=== PATIENT | female | born 1950 | race Caucasian/White ===

== ENCOUNTER 2018-08-01 02:19 | Inpatient (IN) ==
[2018-08-01 03:45] LABS: BASO# 0.01 X1000 (0.0-0.2); BASO% 0.1 % (0.0-0.8); HEMATOCRIT 39.2 % (37.0-47.0); IMM GRAN# 0.05 X1000 (0.0-0.04); IMM GRAN% 0.5 % (0.0-0.5); LYMPH# 0.92 X1000 (1.2-3.4); LYMPH% 9.3 % (20.5-51.1); MCH 31.6 PG (27-31); MCHC 33.2 g/dL (33-37); MCV 95.1 FL (81-99); MONO# 0.56 X1000 (0.11-0.59); MONO% 5.6 % (1.7-9.3); MPV 10.6 FL (7.4-10.4); NEUT# 8.39 X1000 (1.4-6.5); NEUT% 84.5 % (42.2-75.2); PLT 272 X1000 (130-400); RBC 4.12 XMIL (4.2-5.4); RDW 12.6 % (11.5-14.5); WBC 9.93 X1000 (4.8-10.8)
[2018-08-01 04:10] LABS: AGAP 13; ALB/GLOB RATIO 1.5; ALKALINE PHOSPHATASE 60 U/L (32-104); BUN 13 mg/dL (8-22); CALCIUM 9.4 mg/dL (8.8-10.2); CHLORIDE 98 mmol/L (98-107); COSMO 281; CREATININE 0.7 mg/dL (0.5-0.9); ESTIMATED GFR > 60; GLUCOSE 186 mg/dL (70-104); GOT 58 U/L (10-30); GPT 35 U/L (10-36); POTASSIUM 3.8 mmol/L (3.5-5.1); SODIUM 138 mmol/L (136-145); TCO2 27 mmol/L (25-35); TOTAL BILIRUBIN 0.29 mg/dL (0.20-1.00); TOTAL PROTEIN 6.7 g/dL (6.3-8.3)
[2018-08-01 04:13] LABS: INR 0.86; PROTIME 12.4 Seconds (11.0-16.0)
[2018-08-01] MEDS: NS 1,000 ML IV SCH ×2 (04:39→18:52)
[2018-08-01] MEDS: MORPHINE IV PRN ×5 (04:39→22:13)
[2018-08-01 05:39] LABS: CHOLESTEROL 244 mg/dL (0-200); HDL 87 mg/dL (45-65); LDL 144 mg/dL; TRIGLYCERIDES 66 mg/dL (35-135); VLDL 13 mg/dL
[2018-08-01 05:49] LABS: HEMOGLOBIN A1C 5.6 % (4.8-6.0)
[2018-08-01] MEDS ORDERED: DIPRIVAN 1% ONE (10:04)
[2018-08-01] MEDS ORDERED: FENTANYL ONE (10:04)
--- NOTE | 2018-08-01 10:32 | HISTORY AND PHYSICAL ---
CHIEF COMPLAINT: Abdominal pain, nausea and vomiting. HISTORY OF PRESENT ILLNESS: This is a 68-year-old female who established sent to us from [facility] after she was evaluated tonight for nausea, vomiting and abdominal pain. She has a history of spastic colon, borderline diabetes treated with metformin and hyperlipidemia, however she is unable to take statin. She stated that normally whenever her spastic colon acts up it will hurt for around an hour and then it resumes to normal. Tonight she had nausea and vomiting times a couple of episodes along with intense epigastric abdominal pain, so she went into the emergency room. Laboratory data was all grossly normal. CT scan obtained was read as a volvulus associated with hiatal hernia and partial obstruction. Dr. Ellison was spoken to and the patient will be admitted to [facility] for further evaluation and treatment. PAST MEDICAL HISTORY: Breast cancer. See HPI. PREVIOUS SURGICAL HISTORY: 1. Hysterectomy. 2. Appendectomy. 3. Cholecystectomy. 4. Joint repair. 5. Right mastectomy. SOCIAL HISTORY: She is in the process of being . Apparently, it is a fairly stressful separation. The patient has wished to be confidential in the computer. She denies tobacco, alcohol, illicit drug use or abuse. FAMILY HISTORY: Positive for breast cancer in her mother. ALLERGIES: No known drug allergies. HOME MEDICATIONS: Metformin dose unknown. An order was placed for the nursing to reconcile home medications. REVIEW OF SYSTEMS: A 14 point review of systems conducted with the patient. Pertinent positives listed above in the HPI. All other systems reviewed and found to be negative. PHYSICAL EXAMINATION: VITAL SIGNS: Temperature 97.5 degrees Fahrenheit, pulse 77, respirations 18, blood pressure 117/55. Oxygen saturation 98% on room air. GENERAL: A pleasant 68-year-old, female, lying on the medical floor bed. Answers all questions appropriately. She is alert and oriented x3. HEENT: Head is atraumatic, normocephalic. Eyes: Pupils are equal, round and reactive to light. Extraocular eye movements intact. Sclerae anicteric. Conjunctivae is pink. ENT: Oral mucosa is moist. NECK: Supple. No JVD. No thyromegaly. Trachea is midline. No cervical lymphadenopathy. CARDIOVASCULAR: S1, S2 appreciated. No murmur, gallop or rub. LUNGS: Clear to auscultation bilaterally. No rhonchi, wheeze or rales. Symmetric rise and fall of respirations. ABDOMEN: Soft, nondistended. Tender mainly in the epigastric area. Very mild tenderness. Bowel sounds significantly decreased all four quadrants. No pulsatile mass. No organomegaly. EXTREMITIES: No clubbing, cyanosis or edema. Two-plus pedal pulses bilaterally. GENITOURINARY: No bladder distention. The patient voids. Otherwise deferred. INTEGUMENTARY: Multiple small red petechiae noted all over the patient's extremities. Otherwise, warm, dry and intact. No acute lesions or rash. NEUROLOGIC: Alert and oriented x3. No focal motor deficits. Otherwise nonfocal examination. IMAGING: CT of the abdomen and pelvis at [facility] was read as a volvulus associated with hiatal hernia and partial obstruction. LABORATORY DATA: WBC 9.9, hemoglobin 13.5, hematocrit 38.8, platelet count 275, 000. Sodium 137, potassium 3.8, chloride 98, carbon dioxide 25, BUN 15, creatinine 0.8, glucose 168. Amylase 82. Lipase 23. IMPRESSION AND PLAN: 1. Questionable volvulus with partial bowel obstruction. Dr. Ellison has been consulted. The patient will be held n.p.o. Morphine as needed for pain. Zofran for nausea. If patient continues to vomit, we will speak to Dr. Ellison about possibly trying to advance an NG tube, however that does not seem to be a problem at this point. 2. Diabetes mellitus type 2 on oral antihyperglycemics. We will hold these for now. Check hemoglobin A1c, finger-stick blood sugars q a.c. and at bedtime. Patient is n.p.o. We will not provide sliding-scale coverage at this time. Her blood sugar was mildly elevated. We will continue to monitor. 3. Hyperlipidemia. Patient is allergic to statins. We will check a lipid profile. 4. Nausea and vomiting. Likely associated to #1. See p.r.n. medications. Further recommendations per the patient's clinical course. Dictated by CHERRI Velarde for Mercy Lepe MD cc: MD Marbin Morris CRNP [place]le P. Akinsoto, MD Independent exam and assessment was performed by me with [employer]. Abdomen exam was surprisingly benign without any peritoneal signs. Will treat symptomatically pending surgical review. MTDD
[2018-08-01] MEDS ORDERED: MEFOXIN 2 GM/NS 2 GM/50 ML IVPB ONE (10:45)
[2018-08-01] MEDS ORDERED: EXPAREL 1.3% ONE (11:11)
[2018-08-01] MEDS ORDERED: MEFOXIN 2 GM/NS 2 GM/50 ML IVPB IV ONE (12:00)
[2018-08-01] MEDS: MARCAINE 0.5% PF ONE ×2 (12:21→14:05)
[2018-08-01] MEDS: NAROPIN 0.5% ONE ×3 (12:21→19:59)
[2018-08-01] MEDS: MARCAINE 0.5% ONE ×2 (12:22→14:02)
[2018-08-01 12:38] LABS: URINE SOURCE CATH
[2018-08-01 12:42] LABS: BILIRUBIN URINE NEGATIVE (NEGATIVE); BLOOD URINE NEGATIVE (NEGATIVE); COLOR YELLOW; GLUCOSE URINE NEGATIVE (NEGATIVE); KETONE URINE TRACE mg/dL (NEGATIVE); LEUKOCYTES URINE NEGATIVE (NEGATIVE); NITRITE URINE NEGATIVE (NEGATIVE); PROTEIN URINE NEGATIVE (NEGATIVE); SP GRAVITY URINE 1.022; TURBIDITY URINE CLEAR (CLEAR); UROBILINOGEN URINE NORMAL (NORMAL)
[2018-08-01 12:43] LABS: UR EPITHELIAL CELLS <10 /HPF (<10); URINE BACTERIA NEGATIVE /HPF; URINE RBC <10 /HPF (<10); URINE WBC <10 /HPF (<10)
[2018-08-01] MEDS ORDERED: NEOSTIGMINE ONE ×2 (13:06→13:08)
[2018-08-01] MEDS ORDERED: ROBINUL ONE ×2 (13:06→13:09)
[2018-08-01] MEDS ORDERED: EPHEDRINE ONE (13:09)
[2018-08-01] MEDS ORDERED: XYLOCAINE-MPF 2% ONE (13:09)
[2018-08-01] MEDS ORDERED: DECADRON ONE (13:09)
[2018-08-01] MEDS ORDERED: QUELICIN (DOSE) ONE (13:09)
[2018-08-01] MEDS ORDERED: ZOFRAN ONE (13:09)
[2018-08-01] MEDS ORDERED: NEO-SYNEPHRINE ONE (13:09)
[2018-08-01] MEDS ORDERED: NORCURON ONE (13:09)
[2018-08-01] MEDS: PHENERGAN ONE ×2 (13:53→19:59)
--- NOTE | 2018-08-01 14:01 | OPERATIVE NOTE ---
PROCEDURE DATE: 08/01/2018 PREOPERATIVE DIAGNOSIS: Large type 3 hiatal hernia with gastric volvulus. POSTOPERATIVE DIAGNOSIS: Large type 3 hiatal hernia with gastric volvulus. PROCEDURES: 1. Exploratory laparotomy. 2. Open primary repair of a type 3 hiatal hernia. 3. Open Aamir fundoplication. 4. Open gastrostomy tube placement (18-Angolan). SURGEON: Aquiles Ellison MD TOSSER: Uvaldo Schulte MD. Dr. Schulte assisted with the entirety of the case. His presence was crucial for the completion of the case. ANESTHESIA: General endotracheal. INTRAOPERATIVE FINDINGS: Large hiatal hernia, which we were able to bring back down and reverse torsion. The stomach itself was viable. The crura were very thin. COMPLICATIONS: None at the time of this dictation. ESTIMATED BLOOD LOSS: 100 mL. SPECIMENS REMOVED: None. DRAINS: None other than the 18-Angolan G-tube. BRIEF HISTORY: This is a 68-year-old female presenting with epigastric pain. She had a large hiatal hernia that was causing partial obstruction and pain, and it was felt that she needed repair. The risks, benefits, and alternatives were discussed. All questions were answered. DESCRIPTION OF PROCEDURE: After informed consent was obtained, the patient was brought to the operative theater and transferred to the operating table, and placed in supine position. General endotracheal anesthesia was then performed without complication. A formal time- out was then performed confirming patient and procedure. Anesthesia did do a preoperative TAP block. After the formal time-out, we prepped and draped the abdomen in sterile fashion. After the time-out, we made a standard midline incision to enter into the abdomen. Upon entry into the abdomen, took down and mobilized the left lobe of the liver to expose the hiatus. We dissected and reduced the large hiatal hernia and reduced the contents into the abdomen. We started taking off some of the redundant hernia sac anteriorly and posteriorly. We were able to get around the esophagus and place a nonlatex Loyd catheter around it to retract it. We were able to expose both left and right crura. They were very thin, but amenable to primary closure. We closed with multiple [id number] stitches with Tycron suture. We did this over a 48-Angolan bougie. There was still enough tissue and space for a larger bougie to go through. Once we had done this, we took down the greater curvature of the stomach and the lesser curvature. I felt as though more bulk with a Aamir fundoplication would be beneficial to the patient. We took the fundus, wrapped it posteriorly around the stomach, and then secured it. I did a fundoplication with Tycron sutures in 3 spots. We made sure we were able to shoeshine the stomach, to make sure it was not twisted. We did this right at the GE junction. We then removed the Loyd around the esophagus, removed the 48-Angolan bougie, and then created a gastrostomy tube. We did this to anchor it and pexy it down further because it wanted to retract up into the abdomen still. We made a hole in the abdominal wall 2 fingerbreadths below the costal margin and 2 fingerbreadths lateral. We then placed an 18- Angolan G-tube through it. We then found a spot on the greater curvature, placed a pursestring around it, made a gastrotomy, and placed a tube in there, blew the balloon up with 8 mL of sterile water, then placed further pursestrings around it to close it. We then sutured it with 3-0 silk up against the abdominal wall. We then irrigated out the abdomen until the suction fluid was clear. There was no active bleeding at the completion of the case, in the abdomen. The liver appeared viable. The stomach appeared to be viable. We then closed the fascia with a looped PDS, starting on either side, and closed the skin with sherly. We secured the flange of the G-tube with Prolene stitches to the skin. The patient tolerated the procedure well and was transferred back to the recovery room in stable condition. cc: MD IDA Morris
[2018-08-01] MEDS: DILAUDID ONE ×3 (14:15→19:59)
--- NOTE | 2018-08-01 15:58 | PROGRESS NOTE ---
DATE: 08/01/2018 SUBJECTIVE: Today Ms. Goldsmith refers to be hurting. She just came from surgery. From the review of the operative report, the surgery done was exploratory laparotomy, open primary repair of a type 3 paraesophageal hernia, open Aamir fundoplication, and then an open gastrostomy tube placement was done. This was done by Dr. Ellison with the help of his associated. OBJECTIVE: Vital signs: Blood pressure is 129/71, pulse is 88, respiration is 18, temperature is 97.6. General: Ms. Goldsmith is a 68-year-old female. She is in bed. She is not in any cardiopulmonary distress. HEENT: Mucosa is pink and moist. Anicteric. Acyanotic. Neck: Supple. Chest: Clear to auscultation. No crepitations. No rhonchi. Cardiovascular: Regular rate and rhythm. No murmurs. No rubs. No gallops. Abdomen: Soft. Minimally tender. There is a PEG tube in place. The surgical wound on the anterior abdominal wall is covered with a sterile dressing. Extremities: No pedal edema. : Loyd catheter is in place. PROCESS MAINTENANCE TECHNICIAN: Patient is awake, alert, and oriented. No focal neurological deficit. LABORATORY DATA: WBC is 9.93, hemoglobin is 13.0, platelet count of 272,000. Chemistry is also reviewed, completely unremarkable. ASSESSMENT: 1. Hiatal hernia with volvulus, status post exploratory laparotomy with open primary repair of the paraesophageal hernia and open Aamir fundoplication and open gastrostomy tube placement today. Patient is immediate postop, doing fairly okay. 2. Dyslipidemia, stable. 3. History of diabetes mellitus. The patient was on metformin at home. We will continue using sliding scale. A1c was 5.6. cc: Nelson Craft MD
[2018-08-01] MEDS: PERIDEX MT SCH (20:01)
[2018-08-01] MEDS: SODIUM CHLORIDE 0.9% INJ SCH (20:02)
[2018-08-01] MEDS: PROTONIX IV SCH (20:02)
[2018-08-01] MEDS: HEPARIN SUBQ SCH (20:02)
[2018-08-01] MEDS: ZOFRAN IV PRN (20:22)
[2018-08-02] MEDS: MORPHINE IV PRN ×6 (01:10→21:39)
[2018-08-02] MEDS: HEPARIN SUBQ SCH ×3 (04:25→21:39)
--- NOTE | 2018-08-02 06:13 | GENERAL SURGERY PROGRESS NOTE ---
DATE: 08/02/2018 SUBJECTIVE: Patient seems to be doing okay. She does report some pain at her incision. OBJECTIVE: Vital Signs: The patient is currently afebrile. Her vital signs are stable. General Examination: No acute distress. Cardiovascular: Regular rate and rhythm. Lungs: Grossly clear. Abdomen: Soft. Appropriately tender. ASSESSMENT AND PLAN: A 68-year-old female, currently postoperative day #1 from exploratory laparotomy, open primary repair of a type 3 hiatal hernia, open Aamir fundoplication, and open G- tube placement. Postoperative state. At this time, we will clamp her gastrostomy tube. We will unclamp it for nausea. We will start her on noncarbonated clears. I want to keep her on noncarbonated liquids because of her Aamir fundoplication. We will see how she does. We will try to get her pain controlled but otherwise, continue current treatment. cc: Aquiles Ellison MD
[2018-08-02 06:44] LABS: HEMATOCRIT 35.8 % (37.0-47.0); HEMOGLOBIN 11.8 g/dL (12.0-16.0); LYMPH# 1.71 X1000 (1.2-3.4); MCH 32.2 PG (27-31); MCV 97.8 FL (81-99); MONO# 0.78 X1000 (0.11-0.59); MONO% 11.9 % (1.7-9.3); MPV 11.1 FL (7.4-10.4); NEUT# 4.08 X1000 (1.4-6.5); NEUT% 62.1 % (42.2-75.2); PLT 218 X1000 (130-400); RBC 3.66 XMIL (4.2-5.4); WBC 6.57 X1000 (4.8-10.8)
[2018-08-02 07:09] LABS: AGAP 10; ALB/GLOB RATIO 1.6; ALBUMIN 3.2 g/dL (3.5-5.0); ALKALINE PHOSPHATASE 78 U/L (32-104); BUN 7 mg/dL (8-22); CALCIUM 8.4 mg/dL (8.8-10.2); CHLORIDE 106 mmol/L (98-107); COSMO 280; CREATININE 0.6 mg/dL (0.5-0.9); ESTIMATED GFR > 60; GLUCOSE 115 mg/dL (70-104); GOT 335 U/L (10-30); GPT 315 U/L (10-36); POTASSIUM 3.9 mmol/L (3.5-5.1); SODIUM 141 mmol/L (136-145); TCO2 25 mmol/L (25-35); TOTAL BILIRUBIN 0.78 mg/dL (0.20-1.00); TOTAL PROTEIN 5.2 g/dL (6.3-8.3)
--- NOTE | 2018-08-02 09:29 | Diag Imaging Result Doc PS360 ---
EXAM: US ABDOMEN-COMPLETE HISTORY: transaminitis TECHNIQUE: Abdominal ultrasound COMPARISON: None. FINDINGS: Midline abdominal bandage obscures some detail. No abdominal aortic aneurysm. Normal inferior vena cava. There is likely mild fatty infiltration of the liver. The common bile duct measures 6 mm. The gallbladder has been removed. Normal kidneys. No hydronephrosis. Normal spleen. No ascites. The pancreas is obscured. IMPRESSION: 1.Fatty liver 2.Cholecystectomy Electronically signed by Lloyd Valadez 08/02/2018 9:26 AM
[2018-08-02] MEDS ORDERED: MORPHINE IV PRN (11:30)
[2018-08-02] MEDS: PERIDEX MT SCH ×2 (11:39→21:39)
[2018-08-02] MEDS: NS 1,000 ML IV SCH (15:13)
--- NOTE | 2018-08-02 16:12 | PROGRESS NOTE ---
DATE: 08/02/2018 SUBJECTIVE: Today, Ms. Goldsmith referred to be doing a lot better. She was taking some clear liquid food. She has not had any bowel movement, has not had any gas, but on general note, she feels a lot better. OBJECTIVE: Vital signs: Blood pressure 100/60, pulse 99, respirations 16, temperature 98.4 degrees. General: Ms. Goldsmith is a 68-year-old female. She is in bed. She was not in any cardiopulmonary distress. HEENT: Mucosa is pink and moist. Anicteric. Acyanotic. Neck: Supple. Chest: Good air entry bilaterally. There were no crepitations, no rhonchi. Cardiovascular: Regular rate and rhythm. No murmurs, no rubs, no gallops. Abdomen: Soft, minimally tender around the PEG tube. PEG tube was in place. The surgical wound is still covered with sterile dressing on the anterior abdominal wall. Extremities: No pedal edema. Genitourinary: Loyd catheter is in place. Central nervous system: The patient is awake, alert, and oriented. There is no focal neurological deficit. LABORATORY DATA: WBC 6.57, hemoglobin 11.8, platelet count 218,000. Chemistry is also reviewed. AST has gone up to 335. ALT is 315. DIAGNOSTIC STUDIES: Ultrasound of the abdomen shows fatty liver and cholecystectomy. The common bile duct is 6 mm. MEDICATIONS: The patient's current medications have also been reviewed. ASSESSMENT: 1. Hiatal hernia with volvulus, status post exploratory laparotomy with open primary repair of the paraesophageal hernia, open Aamir fundoplication, and open gastrostomy tube placement. Today is day 1 postop. The patient is doing fairly okay. She has been started on a clear liquid diet. Surgery is on board. 2. Transaminitis. Etiology is unclear. Ultrasound shows fatty liver disease. It is also possible the patient could have had some injury during surgery as well as possible shock liver. Will continue to follow this up and work it up as well. Hepatitis panel has been sent. 3. Dyslipidemia, stable. 4. Diabetes mellitus with presenting A1c of 5.6. The patient is currently on sliding scale. She will go back on her metformin once clinically stable for discharge. PLAN: In general, Ms. Goldsmith is doing fairly okay day 1 postop and she has been started on clear liquids. The only thing abnormal is her AST and ALT have slightly been elevated. Ultrasound of the liver did not show any gross abnormality except for fatty liver disease. Will continue to monitor this. cc: Nelson Craft MD
[2018-08-02] MEDS: PROTONIX IV SCH (21:39)
[2018-08-02] MEDS: SODIUM CHLORIDE 0.9% INJ SCH (21:39)
[2018-08-02] MEDS: ZOFRAN IV PRN (21:40)
[2018-08-03] MEDS: MORPHINE IV PRN ×8 (00:36→23:13)
--- NOTE | 2018-08-03 06:13 | GENERAL SURGERY PROGRESS NOTE ---
DATE: 08/03/2018 SUBJECTIVE: Patient said she is doing okay. She did have some elevation in her LFTs yesterday. Ultrasound was normal. OBJECTIVE: Vital Signs: Patient is currently afebrile. Her vital signs are stable. General: No acute distress. Resting comfortably in bed. Cardiovascular: Regular rate and rhythm. Lungs: Grossly clear. Abdomen: Soft, appropriately tender. LABORATORY: Currently pending this morning. ASSESSMENT AND PLAN: A 68-year-old currently postoperative day #2 from exploratory laparotomy, open primary repair of type 3 hiatal hernia, open Aamir fundoplication, open gastrostomy tube placement. 1. Postoperative state. At this time, we will keep her NG tube clamped. We will advance her to a full liquid diet. I still want it to be on noncarbonated liquids. We will have to essentially keep her on a full liquid diet for several weeks. I do not want advance her beyond this because of her Aamir fundoplication and risk of edema at the wrap. I want the patient to continue to mobilize and keep the G tube clamped. She is on heparin and Protonix. 2. Elevated liver function tests. This is likely secondary to compression of the left lobe of the liver during the procedure. The liver, itself, looked fine. I imagine this will resolve on its own, and will be transient. cc: Aquiles Ellison MD
[2018-08-03] MEDS: HEPARIN SUBQ SCH ×3 (06:28→20:14)
[2018-08-03] MEDS: NS 1,000 ML IV SCH ×2 (06:28→19:03)
[2018-08-03 07:05] LABS: BASO# 0.01 X1000 (0.0-0.2); BASO% 0.2 % (0.0-0.8); EOS# 0.03 X1000 (0.0-0.7); EOS% 0.5 % (0.0-10.0); HEMATOCRIT 33.9 % (37.0-47.0); LYMPH# 1.65 X1000 (1.2-3.4); LYMPH% 26.7 % (20.5-51.1); MCH 32.1 PG (27-31); MCHC 32.4 g/dL (33-37); MCV 98.8 FL (81-99); MONO# 0.62 X1000 (0.11-0.59); MPV 11.5 FL (7.4-10.4); NEUT# 3.88 X1000 (1.4-6.5); NEUT% 62.6 % (42.2-75.2); PLT 155 X1000 (130-400); RBC 3.43 XMIL (4.2-5.4); RDW 12.9 % (11.5-14.5); WBC 6.19 X1000 (4.8-10.8)
[2018-08-03 07:31] LABS: AGAP 14; ALB/GLOB RATIO 1.1; ALBUMIN 2.7 g/dL (3.5-5.0); ALKALINE PHOSPHATASE 124 U/L (32-104); BUN 5 mg/dL (8-22); CALCIUM 8.1 mg/dL (8.8-10.2); CHLORIDE 102 mmol/L (98-107); COSMO 271; CREATININE 0.5 mg/dL (0.5-0.9); ESTIMATED GFR > 60; GLUCOSE 94 mg/dL (70-104); GOT 160 U/L (10-30); GPT 238 U/L (10-36); POTASSIUM 3.5 mmol/L (3.5-5.1); SODIUM 137 mmol/L (136-145); TCO2 21 mmol/L (25-35); TOTAL BILIRUBIN 1.99 mg/dL (0.20-1.00); TOTAL PROTEIN 5.2 g/dL (6.3-8.3)
[2018-08-03 07:57] LABS: INR 0.92; PROTIME 13.1 Seconds (11.0-16.0)
[2018-08-03] MEDS: PERIDEX MT SCH ×2 (09:48→20:14)
[2018-08-03 14:23] LABS: HEPATITIS PROFILE ACUTE SEE COMMENTS
[2018-08-03] MEDS ORDERED: DULCOLAX PR PRN (15:50)
--- NOTE | 2018-08-03 16:12 | PROGRESS NOTE ---
DATE: 08/03/2018 SUBJECTIVE: This morning Ms. Goldsmith refers to be feeling a lot better. She says she has not had any bowel movement yet, but she feels it is coming. She has been advanced to a full liquid diet. OBJECTIVE: Vital signs: Blood pressure is 114/68, pulse 97, respirations 18, temperature is 99.1 degrees. General: Ms. Goldsmith is a 68-year-old female. She was in bed. Not seemingly distress. HEENT: Mucosa is pink and moist. Anicteric. Acyanotic. Neck: Supple. There is no JVD. Chest: Good air entry bilaterally. No crepitations. No rhonchi. Cardiovascular: Regular rate and rhythm. No murmurs. No rubs. No gallops. [place] beat is at 5th intercostal space, midclavicular line. Abdomen: Soft. PEG tube is in place. The anterior abdominal wall still has a sterile dressing over the surgical wound. Extremities: No pedal edema. Distal pulses are present. PHYSICIAN LIAISON: The patient is awake, alert, oriented. No focal neurological deficit. LABORATORY DATA: WBC is 6.19, hemoglobin is 11.0, platelet count of 155,000. Sodium is 137, potassium 3.5, chloride 102, bicarb is 21, AST is down to 160, ALT is down to 238. Hepatitis panel was negative. ASSESSMENT: 1. Large hiatal hernia with volvulus, status post exploratory laparotomy with open primary repair of the hernia and open Aamir fundoplication and open gastrostomy tube placement. Today is day 2 postop. Patient is doing fairly okay. Surgery is on board. She has been started on a full liquid diet. 2. Transaminitis, improving. We think this is probably due to transient injury from surgery. 3. Dyslipidemia, stable. 4. Diabetes mellitus with presenting A1c of 5.6. Continue with sliding scale. Patient will be transitioned back on her metformin at the time of discharge. PLAN: So in general, I think Ms. Goldsmith is doing fairly okay. She has been started on a full liquid diet today. We will get her p.r.n. Dulcolax and follow up with further recommendations from surgery. cc: Nelson Craft MD [facility] HOSPITALGhislaine
[2018-08-03] MEDS: PROTONIX IV SCH (20:14)
[2018-08-03] MEDS: SODIUM CHLORIDE 0.9% INJ SCH (20:14)
[2018-08-04] MEDS: MORPHINE IV PRN (05:32)
[2018-08-04] MEDS: HEPARIN SUBQ SCH (05:33)
[2018-08-04] MEDS ORDERED: NORCO-5 PO PRN (05:42)
[2018-08-04 06:58] LABS: ALB/GLOB RATIO 1.3; ALBUMIN 2.9 g/dL (3.5-5.0); DIRECT BILIRUBIN 0.3 mg/dL (0.00-0.20); TOTAL BILIRUBIN 0.74 mg/dL (0.20-1.00); TOTAL PROTEIN 5.1 g/dL (6.3-8.3)
--- NOTE | 2018-08-04 07:37 | GENERAL SURGERY PROGRESS NOTE ---
DATE: 08/04/2018 SUBJECTIVE: Patient seems to be doing okay, tolerated a full liquid diet, is passing gas, not nauseated, up and mobilizing. OBJECTIVE: Vital Signs: Patient is currently afebrile. Her vital signs are stable. General: No acute distress. Cardiovascular: Regular rate and rhythm. Lungs: Grossly clear. Abdomen: Soft, appropriately tender. Incision is healing well. ASSESSMENT AND PLAN: A 68-year-old female, currently postoperative day #3 from exploratory laparotomy, open primary repair of type 3 hiatal hernia, open Aamir fundoplication, and open gastrostomy tube placement. 1. Postoperative state. At this time, her gastrostomy tube has remained clamped. She is not having nausea. She is tolerating a full liquid diet. I think she is clinically getting close to being discharged. We will transition over to oral pain medicine. If she seems to do okay with oral pain medicine, I think she can be discharged home today. I put a prescription in the chart. I do need to see her back in the office in 1 to 2 weeks. She needs to stay on a noncarbonated full-liquid diet at discharge. 2. Elevated liver function tests. At this time, this seems to be trending down. It is probably related to surgical retraction. cc: Aquiles Ellison MD
[2018-08-04 07:58] VITALS: BP 120/68
[2018-08-04] MEDS: PERIDEX MT SCH (08:43)
--- NOTE | 2018-08-05 16:00 | DISCHARGE SUMMARY ---
ADMISSION DATE: 08/01/2018 DISCHARGE DATE: 08/04/2018 DISPOSITION: Home with [facility]. FOLLOW-UP: 1. Dr. Ellison. 2. Dr. Pineda. CONSULTATION DURING THIS ADMISSION: Surgery was consulted. Patient was seen by Dr. Ellison. INVASIVE PROCEDURES DONE DURING THIS ADMISSION: 1. Exploratory laparotomy. 2. Open primary repair of type 3 hiatal hernia. 3. Open Aamir fundoplication. 4. An open gastrostomy tube placement (18-Chinese. All this was done by Dr. Ellison with his associates. IMAGING STUDIES OF SIGNIFICANCE: Ultrasound of the abdomen showed fatty liver disease, a cholecystectomy. ADMISSION DIAGNOSES: 1. Questionable volvulus and partial bowel obstruction. 2. Diabetes mellitus. 3. Dyslipidemia. DIAGNOSES AT THE TIME OF DISCHARGE: 1. Large hiatal hernia with volvulus, status post exploratory laparotomy with open primary repair of the hernia, and open Aamir fundoplication, and open gastrostomy tube. 2. Transient transaminitis likely due to injury during surgery. 3. Dyslipidemia. 4. Diabetes mellitus with presenting A1c of 5.6. The patient is back onto her oral hypoglycemic agents. 5. Fatty liver disease noted. PRESENTING COMPLAINT: Abdominal pain, nausea and vomiting. HISTORY OF PRESENTING COMPLAINT: Ms. Goldsmith is a 68-year-old female, who was sent from [facility] after she presented over there because of nausea and vomiting. The patient was evaluated. A CT scan of the abdomen from [facility] did show volvulus associated with hiatal hernia and partial obstruction. Dr. Ellison was spoken to from that facility. He accepted the patient as a transfer to [facility] to the Hospitalist Services. The patient was subsequently transferred over here. HOSPITAL COURSE: The patient was initially seen by the hospitalist team. Dr. Ellison was reconsulted. The patient was evaluated by Dr. Ellison and decision was made to take her to OR which was successfully done. Please refer to the details of the OR report. Postoperatively, Ms Goldsmith continued to feel better. Abdominal pain got resolved. No more nausea or vomiting. The gastrostomy tube got clamped for over 48 hours, and she was started on clear liquid and was subsequently advanced to full liquid diet. As of today, Ms. Goldsmith is tolerating well her full liquid diet. She is passing some gas, but has not had any bowel movement. She denies any abdominal puffiness. She denies any nauseation. She has been evaluated by Dr. Ellison this morning, and per his note, it is okay for Ms. Goldsmith to be discharged on oral pain medications. She will follow up with him in the office. This morning Ms. Goldsmith refers to feel a lot better. The was at the bedside at the time of the encounter. VITALS: Blood pressure is 120/68, pulse is 81, respirations 20, temperature 98.5 degrees. The patient was saturating 97% on room air. Physical exam is completely unremarkable, except for the gastrostomy tube on the abdominal wall. There is still some dressing over the surgical sites. Her lab works have also been reviewed. AST is back down to 64 from 335, and her ALT is also down to 149 from 315. The patient is advised to repeat LFTs in about a week. All the discharge instructions were discussed with her and with the , and they both voiced understanding. TIME SPENT FOR DISCHARGE: 36 minutes. cc: MD Jason Zamora MD Matthew L. Figh, MD MTDD
== END 2018-08-04 12:34 | disposition home health service (06) | DRG 327 ==
LOC: SUATTDRO 02:19 → 4N 02:19
PROVIDERS: ATTEND Internal Medicine
CPT/HCPCS: 76700; 80053; 80061; 80074; 80076; 80307; 80324; 80329; 81001; 82003; 82948; 83036; 85025; 85610; 94761; 94799; A9270; C9113; C9290; G0480; G6039; J0330; J0694; J1100; J1170; J1644; J2270; J2370; J2405; J2550; J2795; J3010; J7030; S0020; S0164; XXXXX